=== PATIENT | female | born 1975 | race Caucasian/White ===

== ENCOUNTER 2019-11-13 10:46 | Outpatient (CLI) | payer OTHER, SELFPAY ==
--- NOTE | ~2019-11-13 | US_ITS ---
EXAMINATION: US thyroid EXAM DATE: 11/13/2019 11:15 INDICATION: Thyrotoxicosis. TECHNIQUE: Multiple grayscale and Doppler images of the thyroid were obtained (by a technologist who performed the scan) and subsequently reviewed. Individual nodules may be reported using TI-RADS syst em as designated by the 2017 ACR White Paper TI-RADS committee. There is no prior study for comparis on. FINDINGS: The thyroid is overall mildly enlarged with homogeneous thyroid echogenicity. The exact measurements were acquired in slightly oblique planes and are not believed to be accurate. No focal nodules. IMPRESSION: 1. Mild thyromegaly. Reviewed, dictated and finalized at location A. TERY WARDEN IMPRESSION: 1. Mild thyromegaly.
== END 2019-11-13 10:47 | disposition home or self-care (01) ==
LOC: ANHIMG 10:49
PROVIDERS: PCP Internal Medicine; Visit Provider Internal Medicine Endocrinology, Diabetes & Metabolism
DX: E05.90 Thyrotoxicosis, unspecified without thyrotoxic crisis or storm (principal)
CPT/HCPCS: 76536

== ENCOUNTER 2021-11-26 10:05 | Outpatient (CLI) | payer OTHER, SELFPAY ==
[2021-11-26 13:17] LABS: Free T4 Free Thyroxine 1.04 ng/mL (0.78-2.19)
[2021-11-26 13:32] LABS: Thyroid Stimulating Hormone 0.552 uIU/mL (0.465-4.680)
[2021-11-29 08:38] LABS: Triiodothyronine T3 Free 3.5 pg/mL (2.3-4.2)
== END 2021-11-26 10:06 | disposition home or self-care (01) ==
LOC: ANHWCLAB 10:09
PROVIDERS: PCP Internal Medicine; Visit Provider Internal Medicine Endocrinology, Diabetes & Metabolism
DX: E05.90 Thyrotoxicosis, unspecified without thyrotoxic crisis or storm (principal); E04.9 Nontoxic goiter, unspecified
CPT/HCPCS: 36415; 84439; 84443; 84481

== ENCOUNTER 2022-11-30 15:30 | Outpatient (CLI) | payer OTHER, SELFPAY ==
[2022-12-03 14:31] LABS: Thyroid Stimulating Immunoglob 193 % baseline (<140)
== END 2022-11-30 15:31 | disposition home or self-care (01) ==
LOC: ANHWCLAB 15:33
PROVIDERS: Visit Provider Internal Medicine Endocrinology, Diabetes & Metabolism
DX: E05.90 Thyrotoxicosis, unspecified without thyrotoxic crisis or storm (principal)
CPT/HCPCS: 36415; 84439; 84443; 84445

== ENCOUNTER 2024-09-15 13:17 | Outpatient (CLI) | payer OTHER, SELFPAY ==
[2024-09-15 14:08] LABS: Basophils Absolute Auto 0.1 K/mm3 (0.0-0.1); Basophils Percent Auto 1.2 % (0.2-1.2); Eosinophils Absolute Auto 0.1 K/mm3 (0-0.3); Eosinophils Percent Auto 0.9 % (0-4.4); Hematocrit 44.2 % (37.0-47.0); Hemoglobin 14.6 g/dL (12.0-15.0); Immature Granulocyte Absolute 0.02 K/mm3 (0.00-0.031); Immature Granulocyte Percent A 0.3 % (0-0.5); Lymphocytes Absolute Auto 1.73 K/mm3 (0.9-3.2); Mean Corpuscular Hemoglobin 32.2 pg (26-34); Mean Corpuscular Volume 97.4 fl (80-100); Mean Platelet Volume 10.6 fl (7.4-10.4); Monocytes Absolute Auto 0.5 K/mm3 (0.1-0.6); Monocytes Percent Auto 7.4 % (2.6-8.5); Neutrophils Absolute Auto 4.5 K/mm3 (1.3-6.7); Neutrophils Percent Auto 65.2 % (45.5-73.1); Platelet Count Result 321 k/mm3 (150-375); Red Blood Count 4.54 M/mm3 (4.2-5.4); Red Cell Distribution Width 12.6 % (11.5-14.5); White Blood Count 6.9 K/mm3 (4.5-10.0)
[2024-09-15 14:15] LABS: Add Urine Microscopic? NO; Appearance Urine Clear (Clear); Bilirubin Urine Negative (Negative); Blood Urine Negative (Negative); Color Urine Yellow (Yellow); Glucose Urine UA Negative (Negative); Ketones Urine Trace mg/dL (Negative); Leukocyte Esterase Ur Negative LEU/UL (Negative); Nitrate Urine Negative (Negative); Protein Urine Negative (Negative); pH Urine 5.5 (5.0-9.0)
[2024-09-15 14:20] LABS: Alanine Aminotransferase 27 U/L (6-35); Albumin Level 4.7 g/dL (3.5-5.1); Alkaline Phosphatase 93 U/L (38-126); Anion Gap 7 mmol/L (4-12); Aspartate Amino Transferase 22 U/L (14-36); Bilirubin,Total 0.7 mg/dL (0.2-1.3); Blood Urea Nitrogen 11 mg/dL (7-17); Calcium 10.1 mg/dL (8.4-10.2); Carbon Dioxide 26 mmol/L (22-30); Chloride 105 mmol/L (98-107); Cholesterol 192 mg/dL (0-200); Estimated Glomerular Filt Rate 58; Glucose 101 mg/dL (65-110); HDL Direct 57 mg/dL; Potassium 4.2 mmol/L (3.4-5.0); Sodium 138 mmol/L (137-145); Triglycerides 125 mg/dL (<150)
[2024-09-15 14:32] LABS: LDL Cholesterol Direct 93 mg/dL
[2024-09-15 14:51] LABS: Thyroid Stimulating Hormone 0.701 uIU/mL (0.465-4.680)
[2024-09-15 15:13] LABS: Vitamin D 25 Hydroxy 54.7 ng/mL
[2024-09-15 15:26] LABS: Folic Acid 9.2 ng/mL (2.76->20)
[2024-09-18 07:22] LABS: FSH 68.8 mIU/mL
== END 2024-09-15 13:18 | disposition home or self-care (01) ==
PROVIDERS: PCP Nurse Practitioner; Referring Provider Nurse Practitioner; Visit Provider Obstetrics & Gynecology
DX: G35 Multiple sclerosis (principal); F17.200 Nicotine dependence, unspecified, uncomplicated; J32.9 Chronic sinusitis, unspecified; Z00.00 Encounter for general adult medical examination without abnormal findings; R53.81 Other malaise; E55.9 Vitamin D deficiency, unspecified; Z13.21 Encounter for screening for nutritional disorder; Z78.0 Asymptomatic menopausal state
CPT/HCPCS: 36415; 80053; 80061; 81003; 82306; 82607; 82670; 82746; 83001; 84443; 85025

== ENCOUNTER 2024-09-28 16:49 | Outpatient (CLI) | payer OTHER, SELFPAY ==
[2024-09-28 18:01] LABS: Free T4 Free Thyroxine 0.98 ng/dL (0.78-2.19)
== END 2024-09-28 16:50 | disposition home or self-care (01) ==
LOC: ANHLAB 16:51
PROVIDERS: Internal Medicine Endocrinology, Diabetes & Metabolism; PCP Nurse Practitioner; Visit Provider Psychiatry & Neurology Neurology
DX: G35 Multiple sclerosis (principal); Z79.899 Other long term (current) drug therapy; E05.90 Thyrotoxicosis, unspecified without thyrotoxic crisis or storm
CPT/HCPCS: 36415; 84439

== ENCOUNTER 2024-10-30 08:23 | Outpatient (CLI) | payer OTHER, SELFPAY ==
[2024-10-30 08:50] LABS: Basophils Absolute Auto 0.1 K/mm3 (0.0-0.1); Eosinophils Percent Auto 0.4 % (0-4.4); Hematocrit 45.7 % (37.0-47.0); Hemoglobin 15.3 g/dL (12.0-15.0); Immature Granulocyte Absolute 0.03 K/mm3 (0.00-0.031); Immature Granulocyte Percent A 0.4 % (0-0.5); Lymphocytes Absolute Auto 1.59 K/mm3 (0.9-3.2); Mean Corpuscular HGB Conc 33.5 g/dl (32-36); Mean Corpuscular Hemoglobin 32.6 pg (26-34); Mean Corpuscular Volume 97.2 fl (80-100); Mean Platelet Volume 10.4 fl (7.4-10.4); Monocytes Absolute Auto 0.6 K/mm3 (0.1-0.6); Monocytes Percent Auto 7.3 % (2.6-8.5); Neutrophils Absolute Auto 6.1 K/mm3 (1.3-6.7); Neutrophils Percent Auto 71.9 % (45.5-73.1); Platelet Count Result 325 k/mm3 (150-375); Red Cell Distribution Width 12.5 % (11.5-14.5); White Blood Count 8.4 K/mm3 (4.5-10.0)
[2024-10-30 09:13] LABS: Immunoglobulin A 236 mg/dL (70-400); Immunoglobulin G 1480 mg/dL (700-1600); Immunoglobulin M 73 mg/dL (40-230)
[2024-10-30 09:39] LABS: Alanine Aminotransferase 28 U/L (6-35); Albumin Level 4.5 g/dL (3.5-5.1); Alkaline Phosphatase 85 U/L (38-126); Anion Gap 10 mmol/L (4-12); Aspartate Amino Transferase 26 U/L (14-36); Bilirubin,Total 0.8 mg/dL (0.2-1.3); Blood Urea Nitrogen 15 mg/dL (7-17); Calcium 9.8 mg/dL (8.4-10.2); Carbon Dioxide 26 mmol/L (22-30); Chloride 104 mmol/L (98-107); Estimated Glomerular Filt Rate > 60; Glucose 112 mg/dL (65-110); Potassium 5.2 mmol/L (3.4-5.0); Sodium 140 mmol/L (137-145)
[2024-10-31 16:39] LABS: Immunoglobulin E 13 kU/L (<OR=114)
--- OUTSIDE RECORDS SUMMARY | 2024-11-01 16:14 | XMS_ITS | Encounter Summary ---
Author Organization [facility] Healthcare Address [address] [place] [address] Care Team Providers Care Re Dye Hand Name Role Phone Baljinder Garcia MD Primary Care Provider [phone] Encounter Details Date Type Department Care Team (Late st Contact Info) Description 10/25/2024 Orders Only [facility] Health Information Management [address] [place] [address] Gianni Quintero MD [address] [facility] [address] [place] [address] Social History Tobacco Use Types Packs/Day Years Used Date Smoking Tobacco: Light Smoker Smokeless Tobacco: Never Alcohol Use Standard Drinks/Week Comments No 0 (1 standard drink = 0.6 oz pur e alcohol) Personal Safety Answer Date Recorded Getting School Help Needed Not on file 09/20 Comments No Sex and Gender Information Value Date Recorded Sex Assigned at Not on file Legal Sex Female 4:35 PM DE ICER Gender Identity Not on file Sexual Orientation Not on file documented as of this encounter Plan of Treatment Not on file documented as of this encounter Procedures Procedure Name Priority Date/Time Associated Diagnosis Comments SCAN - LABS 10/25/2024 4:33 PM DE ICER documented in this encounter Results * SCAN - LABS (10/25/2024 4:33 PM DE ICER) us Gianni Quintero MD Final Result documented in this encounter Visit Diagnoses Not on filedocumented in this encounter Care Teams Re Dye Hand Relationship Specialty Start Date End Date Baljinder Garcia MD [address] [place] [address] PCP - General Family Medicine 04/14/23 documented as of this encounter
--- OUTSIDE RECORDS SUMMARY | 2024-11-01 16:14 | XMS_ITS | Encounter Summary ---
Author Organization [facility] Healthcare Address [address] [place] [address] Care Team Providers Care Senior Outside Sales Representative Name Role Phone Cosmo Wright MD Primary Care Provider [phone] Baljinder Garcia MD Primary Care Provider [phone] Encounter Details Date Type Department Care Team (Late st Contact Info) Description 08/06/[address] [facility] [address] [place] [address] Transcribed Order, Provider Social History Tobacco Use Types Packs/Day Years Used Date Smoking Tobacco: Every Day Smokeless Tobacco: Never Alcohol Use Standard Drinks/Week Comments No 0 (1 standard drink = 0.6 oz pur e alcohol) Comments No Sex and Gender Information Value Date Recorded Sex Assigned at Not on file 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
--- OUTSIDE RECORDS SUMMARY | 2024-11-01 16:14 | XMS_ITS | Encounter Summary ---
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 Gender Identity Not on file Sexual Orientation Not on file documented as of this encounter Plan of Treatment Not on file documented as of this encounter Procedures Procedure Name Priority Date/Time Associated Diagnosis Comments SCAN - LABS 10/29/2024 3:11 PM BANKRUPTCY LEGAL ASSISTANT SCAN - LABS 10/29/2024 2:48 PM BANKRUPTCY LEGAL ASSISTANT documented in this encounter Results * SCAN - LABS (10/29/2024 3:11 PM BANKRUPTCY LEGAL ASSISTANT) us Gianni Quintero MD Final Result * SCAN - LABS (10/29/2024 2:48 PM BANKRUPTCY LEGAL ASSISTANT) us Gianni Quintero MD Final Result documented in this encounter Visit Diagnoses Not on filedocumented in this encounter Care Teams Detention Deputy Relationship Specialty Start Date End Date Baljinder Garcia MD [address] [place] [address] PCP - General Family Medicine 04/14/23 documented as of this encounter
--- OUTSIDE RECORDS SUMMARY | 2024-11-01 16:14 | XMS_ITS | Encounter Summary ---
Author Organization [facility] Healthcare Address [address] [place] [address] Care Team Providers Care Campaign Coordinator Name Role Phone Baljinder Garcia MD Primary Care Provider [phone] Reason for Visit * Reason Onset Date Comments [facility] Approval 10/29/2024 Auth# [id number], 04/02/24-04/02/25 Encounter Details Date Type Department Care Team (Late st Contact Info) Description 10/29/2024 Telephone [facility] [address] [facility] [address], [place] [address] Wali Bustamante [facility] Approval (Auth# [id number], 04/02/24-04/02/25) Social History Tobacco Use Types Packs/Day Years [...] on file 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 SPECIALIST * Telephone Encounter - Wali Bustamante - 10/29/2024 2:19 PM CST [facility] 6mo Infusion Infusion Due: 10/30/2024 Labs completed: 09/29/2024 Hepatitis completed: 03/09/2023 Last Provider Visit: 06/18/2024 Last Infusion: 04/30/2024 COVID Vaccine: Pfizer COVID-19 Vaccine (Comirnaty bivalent 12+ years) (Pfizer Sars-Cov-2 Bivalent Vaccination (12+ YRS))07/12/2022 Pfizer-BioNTLibboo COVID-19 Vaccine (Pfizer SARS-CoV-2 Monovalent Vaccination (12+ Yrs) PURPLE)07/16/2021, 12/28/2020, 12/06/2020 Allergies: Amoxicillin Drug Ingredient Not Specified Cephalexin Drug Ingredient Not Specified Erythromycin Drug Not Specified Please review chart and advise the [facility] if orders can be put in and patient scheduled. SPECIALIST SPECIALIST documented in this encounter Plan of Treatment Not on file documented as of this encounter Visit Diagnoses Not on filedocumented in this encounter Care Teams Campaign Coordinator Relationship Specialty Start Date End Date Baljinder Garcia MD [address] [place] [address] PCP - General Family Medicine 04/14/23 documented as of this encounter
--- OUTSIDE RECORDS SUMMARY | 2024-11-01 16:14 | XMS_ITS | Encounter Summary ---
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
--- OUTSIDE RECORDS SUMMARY | 2024-11-01 16:14 | XMS_ITS | Encounter Summary ---
Author Organization [facility] Healthcare Address [address] [place] [address] Care Team Providers Care Band Instrument Maker Name Role Phone Baljinder Garcia MD Primary Care Provider [phone] Reason for Visit * Reason Onset Date Comments Lab Results 09/19/2024 Encounter Details Date Type Department Care Team (Late st Contact Info) Description 09/19/2024 Telephone [facility] [address] [facility] [address] [address] Gianni Quintero MD [address] [place] [address] [address] [place] [address] Lab Results Social History Tobacco Use Types Packs/Day Years [...] on file Legal 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 Cabral labs only the pcps labs. I called Mee to let her know and she disagreed saying she went back another day and had them done and that she can see them in her mychart. She is going to call them now and try to get the results over to us she is asking us to hold off on canceling her infusion for tomorrow. COPY EDITOR * Telephone Encounter - Wali Bustamante - 10/29/2024 2:11 PM CST Spoke with pt to let her know we have not received her resutls yet, she said she had them drawn on 09/28 she will call them to see about getting resutls faxed. I also call to get them faxed over. COPY EDITOR * Telephone Encounter - Poonam Zhang - 09/19/2024 3:13 PM CST 6 mo [facility] labs COPY EDITOR documented in this encounter Plan of Treatment Scheduled Orders Name Type Priority Associated Diagnoses Orde r Schedule CBC with auto differential Lab Routine Multiple sclerosis (HCC) High risk medication use Expected: 09/19/2024, Expires: 09/19/2025 Comprehensive metabolic panel Lab Routine Multiple sclerosis (HCC) High risk medication use Expected: 09/19/2024, Expires: 09/19/2025 IgA Lab Routine Multiple sclerosis (HCC) High risk medication use Expected: 09/19/2024, Expires: 09/19/2025 IgE Lab Routine Multiple sclerosis (HCC) High risk medication use Expected: 09/19/2024, Expires: 09/19/2025 IgG Lab Routine Multiple sclerosis (HCC) High risk medication use Expected: 09/19/2024, Expires: 09/19/2025 IgM Lab Routine Multiple sclerosis (HCC) High risk medication use Expected: 09/19/2024, Expires: 09/19/2025 documented as of this encounter Visit Diagnoses Diagnosis Multiple sclerosis (HCC)- Primary Multiple sclerosis High risk medication use documented in this encounter Care Teams Band Instrument Maker Relationship Specialty Start Date End Date Baljinder Garcia MD [address] [place] [address] PCP - General Family Medicine 04/14/23 documented as of this encounter
--- OUTSIDE RECORDS SUMMARY | 2024-11-01 16:14 | XMS_ITS | Clinical Summary ---
Author Organization [facility] Address [address] [place] [address] Care Team Providers Care Security Professionals Name Role Phone Baljinder Garcia MD Primary Care Provider Allergies Active Allergy Reactions Criticality Noted Date Comments Amoxicillin Cephalexin Erythromycin Medications CYANOCOBALAMIN, VITAMIN B-12, ORAL Take 2,000 mcg by mouth daily Active cetirizine (ZyrTEC) 10 mg tablet Take by mouth. Activ e EPIDUO FORTE 0.3-2.5 % gel with pump 7 Active levonorgestreL (Mirena) IUD Mirena 20 mcg/24 hours (5 yrs) 52 mg intrauterine device Take 1 device by intrauterine route. Active methIMAzole (TAPAZOLE) 5 mg tablet Take 1 tablet (5 mg total) by mouth daily Active triamcinolone (KENALOG) 0.1 % cream 2 Active cholecalciferol , vitamin D3, (VITAMIN D3 ORAL) Take by mouth Active progesterone (PROMETRIUM) 200 mg capsule 3 Active oxyBUTYnin XL (DITROPAN XL) 15 mg 24 hr tabletIndicatio ns:Neurogenic bladder Take 1 tablet (15 mg total) by mouth daily 30 tablet 5 3 Active baclofen (LIORESAL) 10 mg tabletIndicatio ns:Multiple sclerosis (HCC) Take 1 tablet (10 mg total) by mouth every 8 (eight) hours as needed for muscle spasms 60 tablet 3 3 Active diazePAM (VALIUM) 5 mg tabletIndicatio ns:anxiety Take 1 tablet by mouth 1 hour prior to MRI, may repeat 30 minutes prior to exam. MUST HAVE FLY MAKER 2 tablet 3 Active cyclobenzaprine (FLEXERIL) 10 mg tabletIndicatio ns:Multiple sclerosis (HCC) TAKE 1 TABLET EVERY 8 HOURS NEEDED FOR MUSCLE SPASMS 60 tablet 5 3 Active buPROPion XL (WELLBUTRIN XL) 150 mg 24 hr tabletIndicatio ns:Multiple sclerosis (HCC),Depressio n due to multiple sclerosis (HCC) TAKE 1 TABLET EVERY MORNING 90 tablet 3 4 Active montelukast (SINGULAIR) 10 mg tablet Take 1 tablet (10 mg total) by mouth daily 4 Active HYDROcodone-tawny taminophen (NORCO) 5-325 mg per tabletIndicatio ns:Pain Take 1 tablet by mouth every 6 (six) hours as needed (pain) 20 tablet 4 Active Active Problems Problem Noted Date Diagnosed Date History of COVID-19 05/27/2022 Assessment & Plan (06/17/2023 2:07 PM CDT): September 2021. Positive on home test. Headache, chills, severe fatigue and muscle spasms Assessment & Plan (03/10/2023 7:22 AM CDT): September 2021. Positive on home test. Headache, chills, severe fatigue and muscle spasms Assessment & Plan (05/27/2022 7:32 AM CDT): September 2021. Positive on home test. Headache, chills, severe fatigue and muscle spasms Neurogenic bladder 01/06/2018 Assessment & Plan (06/17/2023 2:07 PM CDT): Oxybutynin XL 15 mg daily Assessment & Plan (03/10/2023 7:20 AM CDT): Change oxybutynin 10 mg in the morning to oxybutynin XL 15 mg in the morning. Assessment & Plan (05/27/2022 7:30 AM CDT): Oxybutynin 5 mg twice a day Assessment & Plan (02/19/2021 9:12 AM CDT): Oxybutynin 10 mg twice a day Assessment & Plan (07/28/2020 9:00 PM CDT): Oxybutynin 10 mg twice a day Assessment & Plan (01/06/2018 9:00 AM CDT): Oxybutynin Migraine without aura and wi thout status migrainosus, not intractable 07/05/2017 Assessment & Plan (06/17/2023 2:06 PM CDT): Excedrin as needed Assessment & Plan (03/10/2023 7:20 AM CDT): Excedrin as needed Assessment & Plan (05/27/2022 7:30 AM CDT): Excedrin as needed Assessment & Plan (02/19/2021 9:14 AM CDT): Fioricet p.r.n. Assessment & Plan (07/28/2020 8:59 PM CDT): Fioricet p.r.n. 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 Previously treated with Effexor XR 75 mg daily Assessment & Plan (03/10/2023 7:21 AM CDT): Some irritability Previously treated with Effexor XR 75 mg daily Assessment & Plan (05/27/2022 7:31 AM CDT): Some irritability Previously treated with Effexor XR 75 mg daily Assessment & Plan (02/19/2021 9:15 AM CDT): Mood improved Off Effexor XR 75 mg daily Assessment & Plan (07/28/2020 8:59 PM CDT): Mood improved Off Effexor XR 75 mg daily Assessment & Plan (01/06/2018 8:55 AM CDT): Effexor XR 75 mg daily Assessment & Plan (07/05/2017 9:31 AM CDT): Effexor XR 150 mg daily Hyperthyroidism 07/05/2017 Assessment & Plan (06/17/2023 2:07 PM CDT): Status post Lemtrada Methimazole 5 mg daily Endocrinology follow-up Assessment & Plan (03/10/2023 7:21 AM CDT): Status post Lemtrada Methimazole 5 mg daily Endocrinology follow-up Assessment & Plan (05/27/2022 7:31 AM CDT): Status post Lemtrada Methimazole 5 mg daily Endocrinology follow-up Assessment & Plan (02/19/2021 9:15 AM CDT): Status post Lemtrada Methimazole 5 mg daily Endocrinology follow-up Assessment & Plan (07/28/2020 9:01 PM CDT): Status post Lemtrada Methimazole 5 mg 3 times per week Endocrinology follow-up Assessment & Plan (01/06/2018 8:59 AM CDT): Due to Lemtrada exposure F/u with Dr. Suarez to address marked hyperthyroidism. Risks discussed. Assessment & Plan (07/05/2017 9:31 AM CDT): Due to Lemtrada exposure Thyroid scan today F/u with Dr. Suarez. Multiple sclerosis 07/22/2014 Overview (01/13/2017): Multiple sclerosis Assessment & Plan (06/17/2023 2:10 PM CDT): New right C2 cervical spinal cord lesion between May 2023 and July 2020. However did not start Ocrevus until September 2022. Next Ocrevus infusion October 05, 2023. First Ocrevus infusion September 24, 2022. The benefits and risks of Ocrevus were discussed including serious infusion reactions, serious infections (including pneumonia, herpetic infections and PML) and potential malignancy including breast cancer. Annual mammograms and monthly breast self exams. Previously treated with Lemtrada in [facility] II study. Last Lemtrada dose August 2015. Developed new breakthrough MRI activity including enhancing lesion in January 2019. PIEDAD virus antibody positive 08/07/20 with index 1.83 so will avoid Tysabri COVID-19 risks discussed including pneumonia and if she becomes reinfected. Her last COVID-19 vaccine was July 12, 2022. Another booster vaccination advised. She understands that Ocrevus may reduce the efficacy of a COVID-19 vaccine and potentially she may not be protected. Paxlovid advised if she develops recurrent COVID-19.. Hydrocodone/APAP prn severe muscle pain Baclofen 10 mg every 8 hours as needed for muscle spasms Vit D supplement 5000 IU Exercise encouraged Smoking cessation. Wellbutrin XL 150 mg daily prescribed; risks discussed including seizures. Assessment & Plan (03/10/2023 7:19 AM CDT): Next Ocrevus infusion March 24, 2023. First Ocrevus infusion September 24, 2022. The benefits and risks of Ocrevus were discussed including serious infusion reactions, serious infections (including pneumonia, herpetic infections and PML) and potential malignancy including breast cancer. Annual mammograms and monthly breast self exams. Previously treated with Lemtrada in [facility] II study. Last Lemtrada dose August 2015. Developed new breakthrough MRI activity including enhancing lesion in January 2019. PIEDAD virus antibody positive 08/07/20 with index 1.83 so will avoid Tysabri COVID-19 risks discussed including pneumonia and if she becomes reinfected. Her last COVID-19 vaccine was July 12, 2022. She understands that Ocrevus may reduce the efficacy of a COVID-19 vaccine and potentially she may not be protected. Paxlovid advised if she develops recurrent COVID-19.. Hydrocodone/APAP prn severe muscle pain Baclofen 10 mg every 8 hours as needed for muscle spasms Vit D supplement 5000 IU Exercise encouraged MRI brain and cervical spine without contrast May 2023 Assessment & Plan (05/27/2022 7:33 AM CDT): S/p Lemtrada in [facility] II study. Last dose August 2015. The benefits and risks of Lemtrada were discussed including serious infections, low platelets (with serious bleeding), immune kidney disease (with possible ESRD requiring dialysis/transplant), potential malignancy (including melanoma, thyroid cancer or hematologic malignancy) and even . Since new MRI activity including enhancing lesion 01/19/19, option of switching to another disease modifying therapy discussed again. However more recent MRI scan July 2020 was stable. PIEDAD virus antibody positive 08/07/20 with index 1.83 so will avoid Tysabri Patient previously declined Ocrevus. No family history of breast cancer. Patient understands that her PML or other serious infection risk may be higher due to prior Lemtrada exposure. COVID-19 risks discussed including pneumonia and if she becomes reinfected. She had her 3rd COVID-19 vaccine dose prior developing COVID-19 in September 2021. Patient understands that her immune system had likely reconstituted since last Lemtrada exposure 2014. Paxlovid advised if she develops COVID-19 again. Hydrocodone prn severe muscle pain Cyclobenzaprine better tolerated than baclofen for muscle spasms. Vit D supplement 3000 IU recommended Exercise encouraged Assessment & Plan (02/19/2021 9:14 AM CDT): S/p Lemtrada in [facility] II study. Last dose August 2015. The benefits and risks of Lemtrada were discussed including serious infections, low platelets (with serious bleeding), immune kidney disease (with possible ESRD requiring dialysis/transplant), potential malignancy (including melanoma, thyroid cancer or hematologic malignancy) and even . Since new MRI activity including enhancing lesion 01/19/19, option of switching to another disease modifying therapy discussed. However more recent MRI scan July 2020 was stable. PIEDAD virus antibody positive 08/07/20 with index 1.83 so will avoid Tysabri Patient prefers to hold off on Ocrevus initiation. No family history of breast cancer. Patient understands that her PML or other serious infection risk may be higher due to prior Lemtrada exposure. Increased risk of serious complications if develops COVID-19 infection discussed including pneumonia and possibly . Status post 2nd Pfizer COVID 19 vaccine December 28, 2020. Patient understands that her immune system likely reconstituted since last Lemtrada exposure 2014. Hydrocodone prn severe muscle pain Vit D supplement 3000 IU recommended Exercise encouraged Assessment & Plan (07/28/2020 9:05 PM CDT): S/p Lemtrada in [facility] II study. Last dose August 2015. The benefits and risks of Lemtrada were discussed including serious infections, low platelets (with serious bleeding), immune kidney disease (with possible ESRD requiring dialysis/transplant), potential malignancy (including melanoma, thyroid cancer or hematologic malignancy) and even . Since ongoing MRI activity including enhancing lesion 01/19/19, option of switching to another disease modifying therapy discussed. PIEDAD virus antibody positive in the past, but will repeat to confirm. If PIEDAD virus antibody negative, Tysabri would be an option. Risks and benefits of Tysabri discussed including serious infusion reaction, hepatotoxicity, serious infection including PML, and even . The benefits and risks of Ocrevus discussed as well including serious infusion reactions, serious infections including herpetic/respiratory/PML/fungal infections, harm, and potential malignancy including breast cancer. No family history of breast cancer. Patient understands that her PML or other serious infection risk may be higher due to prior Lemtrada exposure. Increased risk of serious complications if develops COVID-19 infection discussed including pneumonia and possibly . Hydrocodone prn severe muscle pain Vit D supplement Exercise Assessment & Plan (01/06/2018 9:00 AM CDT): S/p Lemtrada in [facility] II study. The benefits and risks of Lemtrada were discussed including serious infections, low platelets (with serious bleeding), immune kidney disease (with possible ESRD requiring dialysis/transplant), potential malignancy (including melanoma, thyroid cancer or hematologic malignancy) and even . Since MRI activity in December 2016 on Lemtrada, will switch to Ocrevus if her CD4 count is higher. If her MRI scan today is unchanged, may opt to continue current monitoring on Lemtrada. The benefits and risks of Ocrevus discussed including serious infusion reactions, serious infections including herpetic/respiratory/PML/fungal infections, harm, and potential malignancy including breast cancer. Patient understands that her PML or other serious infection risk may be higher due to prior Lemtrada exposure. No family h/o breast cancer. Needs annual mammograms. Hydrocodone prn severe muscle pain Vit D supplement Exercise Assessment & Plan (07/05/2017 9:30 AM CDT): S/p Lemtrada in [facility] II study. The benefits and risks of Lemtrada were discussed including serious infusion reactions, serious infections, low platelets (with serious bleeding), thyroid disease (1/3 change), immune kidney disease (with possible ESRD requiring dialysis/transplant), potential malignancy (including melanoma, thyroid cancer or hematologic malignancy) and even . Since ongoing MRI activity on Lemtrada, will switch to Ocrevus if her CD4 count is higher. The benefits and risks of Ocrevus discussed including serious infusion reactions, serious infections including PML/fungal infections, harm, and potential malignancy including breast cancer. Patient understands that her PML or other serious infection risk may be higher due to prior Lemtrada exposure. No family h/o breast cancer. Needs annual mammograms. Hydrocodone prn severe muscle pain Oxybutynin Vit D supplement Exercise Encounters Date Type Department Care Team Description 10/31/2024 Orders Only [facility] Health Information Management [address] [place] [id number] Gianni Quintero MD 10/30/2024 Orders Only [facility] Information [facility] [address] [place] [address] [id number] Gianni Quintero MD 10/29/2024 Orders Only [facility] [address] [place] [address] [phone] Gianni Quintero MD 10/29/[address] [facility] in [facility] [place] [address] [id number] Wali Bustamante Approval (Auth# [id number], 04/02/24-04/02/25) 10/25/2024 Orders Only [facility] [address] [place] [id number] Gianni Quintero MD 09/19/2024 Telephone [facility] [address] [phone] Gianni Quintero MD Lab Results from Last 3 Months Immunizations Name Administration Dates Next Due Influenza, Quadrivalent, Shavonne l Culture-based MDCK, Preservative Free, Antibiotic Free, Intramuscular 07/12/2022,08/24/2019 Influenza, Trivalent, IM (MDV) 07/28/2014 Social History Tobacco Use Types Packs/Day Years Used Date Smoking Tobacco: Light Smoker Smokeless Tobacco: Never Tobacco Cessation:Ready to Q uit: Not Asked; Counseling Given: Not Answered Alcohol Use Standard Drinks/Week Comments No 0 (1 standard drink = 0.6 oz pur e alcohol) Personal Safety Answer Date Recorded Getting School Help Needed Not on file 09/20 Comments No Sex and Gender Information Value Date Recorded Sex Assigned at Not on file Legal 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 Gender Identity Not on file Sexual Orientation Not on file Obstetrics History Last Filed Vital Signs Vital Sign Reading Time Taken Comments Blood Pressure 125/75 06/18/2024 9:48 AM CDT Pulse 101 06/18/2024 9:48 AM CDT Temperature 36.2 ??C (97.2 ??F) 06/18/2024 9:48 AM CD T Respiratory Rate 16 04/30/2024 1:30 PM CDT Oxygen Saturation 99% 06/18/2024 9:48 AM CDT Inhaled Oxygen Concentration - - Weight 85.7 kg (189 lb) 06/18/2024 9:48 AM CDT Height 167.6 cm (5' 6 ) 06/18/2024 9:48 AM CDT Body Mass Index 30.51 06/18/2024 9:48 AM CDT Plan of Treatment Health Maintenance Due Date Last Done Comments Breast Cancer Screening-Mammogram 1973 Cervical Cancer Screening 1973 Colon Cancer Screening-Colonoscopy 1973 Depression Screening 1973 Pneumococcal vaccine <65 (1 of 2 - PCV) 1979 DTaP/Tdap/Td Vaccine (1 - Tdap) 1984 Hepatitis B Screening 1991 Regular Well Visit/Exam 18-64 1991 Covid-19 Vaccine (5 - 2023-2 5 season) 2024 07/12/2022, 07/16/2021, 12/28/2020, Additional history exists Influenza Vaccine (#1) 2024 , 07/12/2022, 08/24/2019, Additional history exists Hepatitis C Screening Completed 08/07/2020, 018 Zoster Vaccine Completed 01/03/2024, 09/13/2023 Procedures Procedure Name Priority Date/Time Associated Diagnosis Comments SCAN - LABS 10/31/2024 4:57 PM HATCHERY SUPERVISOR SCAN - LABS 10/30/2024 11:17 AM HATCHERY SUPERVISOR SCAN - LABS 10/30/2024 11:17 AM HATCHERY SUPERVISOR SCAN - LABS 10/29/2024 3:11 PM HATCHERY SUPERVISOR SCAN - LABS 10/29/2024 2:48 PM HATCHERY SUPERVISOR SCAN - LABS 10/25/2024 4:33 PM HATCHERY SUPERVISOR HEPATITIS PANEL, ACUTE Routine 08/07/2020 11:13 AM CDT Multiple sclerosis (CMS/HCC) from Last 3 Months or Most Recently Relevant to Health Maintenance Results * SCAN - LABS (10/31/2024 4:57 PM HATCHERY SUPERVISOR) Gianni Quintero MD Final Result * SCAN - LABS (10/30/2024 11:17 AM HATCHERY SUPERVISOR) Result Mae joaquin Gianni Quintero MD Final Result * SCAN - LABS (10/30/2024 11:17 AM HATCHERY SUPERVISOR) Result Mae joaquin Gianni Quintero MD Final Result * SCAN - LABS (10/29/2024 3:11 PM HATCHERY SUPERVISOR) Result Mae joaquin Gianni Quintero MD Final Result * SCAN - LABS (10/29/2024 2:48 PM HATCHERY SUPERVISOR) Result Mae joaquin Gianni Quintero MD Final Result * SCAN - LABS (10/25/2024 4:33 PM HATCHERY SUPERVISOR) Result Mae us Gianni Quintero MD Final Result * Hepatitis panel, acute (08/07/2020 11:13 AM CDT) Hep A IgM Nonreactive Nonreactive [facility] Comment: Interpretive Data: If Hep A IgM Ab is reported as Equivocal, a new sample should be drawn in two weeks for testing. Current interpretive data was last revised on 19. Hep B core IgM Nonreactive Nonreactive [facility] Comment: Interpretive Data If HepB Core IgM Ab is reported as Equivocal, a new sample should be drawn in two weeks for testing. Current interpretive data was last revised on 19. Hep C Ab Nonreactive Nonreactive [facility] Comment: Interpretive Data Nonreactive: Antibodies to HCV not detected. Does NOT exclude the possibility of recent exposure to HCV. Equivocal: Equivocal for HCV antibodies. Supplemental molecular testing will be automatically performed to determine infection status in accordance with current CDC screening recommendations. ?? Reactive: Positive for HCV antibodies. ??This may represent current or past HCV infection. Supplemental molecular testing will be automatically performed to determine ??current infection status in accordance with current CDC screening recommendations. Interpretive data was last revised on 2019. HepBsAg Nonreactive Nonreactive [facility] Blood specimen (specimen) 08/07/2020 11:13 AM CDT 08/07/2020 11:48 AM CDT us Gianni Quintero MD LAB MICROBIOLOGY - GENERAL OR DERABLES Final Result Performing Organization Address City/State/[facility] Co de Phone Number [facility] [address] [place] [address] from Last 3 Months or Most Recently Relevant to Health Maintenance Insurance [address] CHOICE PLUS [facility] CHOICE PLUS [facility] CHOICE PLUS [address] CHOICE PLUS Care Teams Security Professionals Relationship Specialty Start Date End Date Baljinder Garcia MD [address] [place] [address] PCP - General Family Medicine 04/14/23
--- OUTSIDE RECORDS SUMMARY | 2024-11-01 16:14 | XMS_ITS | Continuity of Care Document ---
Author Organization [facility] Address [address] [place] [address] [address] [place] [address] Phone Care Team Providers Care Assisted Living Administrator Name Role Phone Justice OD, Ze Unavailable Unavailable Procedures Procedure Date Office/outpatient Visit, [facility] Advance Directives Directive Yes / No Effective Date File Name No Information Encounters Encounter Description Practice Location Reason(s) For Visit Diagnoses Date Provider Providers Copied on Encounter Office/outpat ient Visit, [facility], [address] [place] [address] [address], [place], [place], [id number], [place] tel:[phone] [facility] No Information [phone] Justice OD Ze. [address] , [address], [place], [address], [place]. tel:[phone] Family History Family Member Type Diagnosis Age At Onset No Information Payers Payer name Insurance type Covered libertarian ID Authoriza tion(s) Medicaid [place] CI [id number] Social History Type Description Quantity Date Captured [...]
--- OUTSIDE RECORDS SUMMARY | 2024-11-01 16:14 | XMS_ITS | Referral Summary ---
Author Organization [facility] Address [address] [place] [address] Care Team Providers Care Trim Mounter Name Role Phone Baljinder Garcia MD Primary Care Provider [phone] Encounters Date Type Department Care Team Description 10/31/2024 Orders Only [facility] [address] [place] [address] Gianni Quintero MD 10/30/2024 Orders Only [facility] [address] [place] [address] Gianni Quintero MD 10/29/2024 Orders Only [facility] [address] [place] [address] Gianni Quintero MD 10/29/2024 Telephone [facility] [address] [facility] [address] [place] [address] Wali Bustamante Approval (Auth# [id number], 04/02/24-04/02/25) 10/25/2024 Orders Only [facility] [address] [place] [address] Gianni Quintero MD 09/19/2024 Telephone [facility] [address] [facility] [address] [place] [address] Gianni Quintero MD Lab Results from Last 3 Months Allergies Active Allergy Reactions Criticality Noted Date [...] 30 minutes prior to exam. 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 Gender Identity Not on file Sexual Orientation Not on file Last Filed Vital Signs Vital Sign Reading [...] 06/18/2024 9:48 AM CDT Plan of Treatment Not on file Procedures Procedure Name Priority Date/Time Associated Diagnosis Comments SCAN - LABS 10/31/2024 4:57 PM BEAUTY CULTURE TEACHER SCAN - LABS 10/30/2024 11:17 AM BEAUTY CULTURE TEACHER SCAN - LABS 10/30/2024 11:17 AM BEAUTY CULTURE TEACHER SCAN - LABS 10/29/2024 3:11 PM BEAUTY CULTURE TEACHER SCAN - LABS 10/29/2024 2:48 PM BEAUTY CULTURE TEACHER SCAN - LABS 10/25/2024 4:33 PM BEAUTY CULTURE TEACHER HEPATITIS PANEL, ACUTE Routine 08/07/2020 11:13 AM CDT Multiple sclerosis (CMS/HCC) from Last 3 Months or Most Recently Relevant to Health Maintenance Results * SCAN - LABS (10/31/2024 4:57 PM BEAUTY CULTURE TEACHER) Result Mae Quintero MD Final Result * SCAN - LABS (10/30/2024 11:17 AM BEAUTY CULTURE TEACHER) Result Mae Quintero MD Final Result * SCAN - LABS (10/30/2024 11:17 AM BEAUTY CULTURE TEACHER) Result Mae Quintero MD Final Result * SCAN - LABS (10/29/2024 3:11 PM BEAUTY CULTURE TEACHER) Result Mae Quintero MD Final Result * SCAN - LABS (10/29/2024 2:48 PM BEAUTY CULTURE TEACHER) Result Mae Quintero MD Final Result * SCAN - LABS (10/25/2024 4:33 PM BEAUTY CULTURE TEACHER) Result Mae Quintero MD Final Result * Hepatitis panel, acute (08/07/2020 11:13 AM CDT) Hep A IgM Nonreactive Nonreactive [facility] Comment: Interpretive Data: If Hep A IgM Ab is reported as Equivocal, a new sample should be drawn in two weeks for testing. Current interpretive data was last revised on 19. Hep B core IgM Nonreactive Nonreactive [facility] Comment: Interpretive Data If HepB Core IgM Ab is reported as Equivocal, a new sample should be drawn in two weeks for testing. Current interpretive data was last revised on 19. Hep C Ab Nonreactive Nonreactive [facility] Comment: Interpretive Data Nonreactive: Antibodies to HCV [...] last revised on 2019. HepBsAg Nonreactive Nonreactive [facility] Blood specimen (specimen) 08/07/2020 11:13 AM CDT 08/07/2020 11:48 AM CDT Gianni Quintero MD LAB MICROBIOLOGY - GENERAL OR DERABLES Final Result Performing Organization Address City/State/[facility] de Phone Number [facility] [address] [place] [address] from Last 3 Months or Most Recently Relevant to Health Maintenance Insurance [facility] CHOICE PLUS [address] CHOICE PLUS [address] CHOICE PLUS Care Teams Trim Mounter Relationship Specialty Start Date End Date Baljinder Garcia MD [facility] [place] [address] PCP - General Family Medicine 04/14/23
--- OUTSIDE RECORDS SUMMARY | 2024-11-01 16:14 | XMS_ITS | Encounter Summary ---
Author Organization [facility] Address [address] [facility] [address] [place] [address] Phone Care Team Providers Care Centerless Grinder Operator Name Role Phone Cosmo Wright MD Primary Care Provider [phone] Baljinder Garcia MD Primary Care Provider [phone] Encounter Details Date Type Department Care Team (Late st Contact Info) Description 01/06/2018 Orders Only [facility] ProviderTiesha [place] [address] Social History Tobacco Use Types Packs/Day Years Used Date Smoking Tobacco: Every Day Smokeless Tobacco: Never Alcohol Use Standard Drinks/Week Comments No 0 (1 standard drink = 0.6 oz pur e alcohol) Comments No Sex and Gender Information Value Date Recorded Sex Assigned at Not on file Legal Sex Female 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 us Historical Provider LAB BLOOD ORDERABLES Romana l Result documented in this encounter Visit Diagnoses Not on filedocumented in this encounter Care Teams Centerless Grinder Operator Relationship Specialty Start Date End Date Cosmo Wright MD [address] [place] [address] PCP - General 12/22/16 08/06/20 Baljinder Garcia MD [address] [place] [address] PCP - General Family Medicine 04/14/23 documented as of this encounter
== END 2024-10-30 08:24 | disposition home or self-care (01) ==
LOC: ANHLAB 08:29
PROVIDERS: PCP Nurse Practitioner; Visit Provider Psychiatry & Neurology Neurology
DX: G35 Multiple sclerosis (principal); Z79.899 Other long term (current) drug therapy
CPT/HCPCS: 36415; 80053; 82784; 82785; 85025

== ENCOUNTER 2024-12-07 16:56 | Outpatient (CLI) | payer OTHER, SELFPAY ==
[2024-12-11 01:53] LABS: FSH 75.1 mIU/mL
== END 2024-12-07 16:57 | disposition home or self-care (01) ==
LOC: ANHLAB 16:59
PROVIDERS: PCP Nurse Practitioner; Referring Provider Obstetrics & Gynecology; Visit Provider Internal Medicine Endocrinology, Diabetes & Metabolism
DX: E05.90 Thyrotoxicosis, unspecified without thyrotoxic crisis or storm (principal); Z78.0 Asymptomatic menopausal state
CPT/HCPCS: 36415; 82670; 83001; 84443

== ENCOUNTER 2025-02-12 08:24 | Outpatient (CLI) | payer OTHER, SELFPAY ==
--- OUTSIDE RECORDS SUMMARY | 2025-02-12 08:39 | XMS_ITS | Continuity of Care Document ---
Author Organization [facility] Address [address] [place] [address] [address] [place] [address] Phone Care Team Providers Care Esthetician Makeup Artist Name Role Phone Justice OD, Ze Unavailable Unavailable Procedures Procedure Date Office/outpatient Visit, [facility] Advance Directives Directive Yes / No Effective Date File Name No Information Encounters Encounter Description Practice Location Reason(s) For Visit Diagnoses Date Provider Providers Copied on Encounter Office/outpat ient Visit, [facility], [address] [place] [address] [address], [place], [place], [id number], [place] tel:[phone] [facility] [place] No Information [phone] Justice OD Ze. [address] [place] , [address], [place], [address], [place]. tel:[phone] Family History Family Member Type Diagnosis Age At Onset No Information Payers Payer name Insurance type Covered green party ID Authoriza tion(s) [place] [id number] Social History Type Description Quantity Date Captured [...]
--- OUTSIDE RECORDS SUMMARY | 2025-02-12 08:39 | XMS_ITS | Patient Health Record ---
Author Organization [employer] Address [address] [facility] [address] [place] [address] Care Team Providers Care Sat Act Instructor Name Role Phone Baljinder Garcia MD Primary Care Provider UnavailGa Munguia Unavailable [phone] Reason For Referral No Information Plan Of Treatment No Information Insurance Providers Payer Name Payer Address Payer Phone Subscriber Number Group Number Insured Name Patient Relationship to Insured Coverage Start Date Coverage End Date [facility] Choice/ choice Plus E2 [address] [address] [place] [address] [phone] [id number] Mee Moreira Self - patient is the insured
--- OUTSIDE RECORDS SUMMARY | 2025-02-12 08:39 | XMS_ITS | Encounter Summary ---
Author Organization [facility] Healthcare Address [address] [place] [address] Care Team Providers Care Design/Animation Instructor Name Role Phone Baljinder Garcia MD Primary Care Provider [phone] Encounter Details Date Type Department Care Team (Late st Contact Info) Description 04/04/2024 Telephone [facility] [address] [address] Kim Cagle RN Social History Tobacco Use Types Packs/Day Years Used Date Smoking Tobacco: Light Smoker Smokeless Tobacco: Never Alcohol Use Standard Drinks/Week Comments No 0 (1 standard drink = 0.6 oz pur e alcohol) Comments No Sex and Gender Information Value Date Recorded Sex Assigned at Not on file 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
--- OUTSIDE RECORDS SUMMARY | 2025-02-12 08:39 | XMS_ITS | Encounter Summary ---
Author Organization [facility] Healthcare Address [address] [place] [address] Care Team Providers Care Acupressure Therapist Name Role Phone Cosmo Wright MD Primary Care Provider Baljinder Garcia MD Primary Care Provider [phone] Encounter Details Date Type Department Care Team (Late st Contact Info) Description 08/06/2020 Telephone [facility] [address] [place] [address] Transcribed Order, Provider Social History Tobacco Use Types Packs/Day Years Used Date Smoking Tobacco: Every Day Smokeless Tobacco: Never Alcohol Use Standard Drinks/Week Comments No 0 (1 standard drink = 0.6 oz pur e alcohol) Comments No Sex and Gender Information Value Date Recorded Sex Assigned at Not on file 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
--- OUTSIDE RECORDS SUMMARY | 2025-02-12 08:39 | XMS_ITS | Clinical Summary ---
Author Organization [facility] Address [address] [place] [address] Care Team Providers Care Vocational Teacher Name Role Phone Baljinder Garcia MD Primary Care Provider [phone] Allergies Active Allergy Reactions Criticality Noted Date Comments Amoxicillin Cephalexin Erythromycin Medications CYANOCOBALAMIN, VITAMIN B-12, ORAL Take 2,000 mcg by mouth daily Active cetirizine (ZyrTEC) 10 mg tablet Take by mouth. Activ e EPIDUO FORTE 0.3-2.5 % gel with pump 05/06/20 17 Active levonorgestreL (Mirena) IUD Mirena 20 mcg/24 hours (5 yrs) 52 mg intrauterine device Take 1 device by intrauterine route. Active methIMAzole (TAPAZOLE) 5 mg tablet Take 1 tablet (5 mg total) by mouth daily Active triamcinolone (KENALOG) 0.1 % cream 11/04/19 22 Active cholecalciferol, vitamin D3, (VITAMIN D3 ORAL) Take by mouth Active progesterone (PROMETRIUM) 200 mg capsule 02/16/20 23 Active oxyBUTYnin XL (DITROPAN XL) 15 mg 24 hr tabletIndications: Neurogenic bladder Take 1 tablet (15 mg total) by mouth daily 30 tablet 5 03/09/20 23 Active Additional Information Patient taking differently:15 mg oralAs needed, Reported on 12/25/2024 baclofen (LIORESAL) 10 mg tabletIndications: Multiple sclerosis (HCC) Take 1 tablet (10 mg total) by mouth every 8 (eight) hours as needed for muscle spasms 60 tablet 3 03/09/20 23 Active diazePAM (VALIUM) 5 mg tabletIndications: anxiety Take 1 tablet by mouth 1 hour prior to MRI, may repeat 30 minutes prior to exam. 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) TAKE 1 TABLET EVERY MORNING 90 tablet 3 06/06/20 24 Active montelukast (SINGULAIR) 10 mg tablet Take 1 tablet (10 mg total) by mouth daily 05/03/20 24 Active HYDROcodone-acetam inophen (NORCO) 5-325 mg per tabletIndications: Pain Take 1 tablet by mouth every 6 (six) hours as needed (pain) 20 tablet 07/30/20 24 Active ondansetron ODT (ZOFRAN-ODT) 4 mg disintegrating tabletIndications: Multiple sclerosis (HCC) Take 1 tablet (4 mg total) by mouth every 8 (eight) hours as needed for nausea or vomiting 20 tablet 11/20/19 25 Active cyclobenzaprine (FLEXERIL) 10 mg tabletIndications: Multiple sclerosis (HCC) TAKE 1 TABLET EVERY 8 HOURS NEEDED FOR MUSCLE SPASMS 60 tablet 5 12/07/19 25 Active estradioL (ESTRACE) 0.5 mg tablet Take 1 tablet (0.5 mg total) by mouth daily 09/25/20 24 Active Active Problems Problem Noted Date Diagnosed [...] Assessment & Plan (02/19/2021 9:14 AM CDT): Flavia p.r.wanda. 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 Gender Identity Not on file Sexual Orientation Not on file Obstetrics History Last Filed Vital Signs Vital Sign Reading Time Taken Comments Blood Pressure 112/74 12/25/2024 9:17 AM CDT Pulse 97 12/25/2024 9:17 AM CDT Temperature 36.7 C (98.1 F) 12/25/2024 9:17 AM CDT Respiratory Rate 16 11/13/2024 12:31 PM QUARTER SUPERVISOR Oxygen Saturation 98% 12/25/2024 9:17 AM CDT Inhaled Oxygen Concentration - - Weight 89.8 kg (198 lb) 12/25/2024 9:17 AM CDT Height 167.6 cm (5' 6 ) 12/25/2024 9:17 AM CDT Body Mass Index 31.96 12/25/2024 9:17 AM CDT Plan of Treatment Health Maintenance Due Date Last Done Comments Breast Cancer Screening-Mammogram 1973 Cervical Cancer Screening 1973 Colon Cancer Screening-Colonoscopy 1973 Depression Screening 1973 DTaP/Tdap/Td Vaccine (1 - Tdap) 1984 Hepatitis B Screening 1991 Regular Well Visit/Exam 18-64 1991 Pneumococcal vaccine <65 (1 of 2 - PCV) 1992 Covid-19 Vaccine (5 - 2023-2 5 season) 2024 07/12/2022, 07/16/2021, 12/28/2020, Additional history exists Influenza Vaccine (#1) 2024 , 07/12/2022, 08/24/2019, Additional history exists Hepatitis C Screening Completed 08/07/2020, 018 Zoster Vaccine Completed 01/03/2024, 09/13/2023 Procedures Procedure Name Priority Date/Time Associated Diagnosis Comments HEPATITIS PANEL, ACUTE Routine 08/07/2020 11:13 AM CDT Multiple sclerosis (HCC) from Last 3 Months or Most Recently Relevant to Health Maintenance Results * Hepatitis panel, acute (08/07/2020 11:13 AM CDT) Hep A IgM Nonreactive Nonreactive [facility] Comment: Interpretive Data: If Hep A IgM Ab is reported as Equivocal, a new sample should be drawn in two weeks for testing. Current interpretive data was last revised on 19. Hep B core IgM Nonreactive Nonreactive [facility] Comment: Interpretive Data If HepB Core IgM Ab is reported as Equivocal, a new sample should be drawn in two weeks for testing. Current interpretive data was last revised on 19. Hep C Ab Nonreactive Nonreactive [facility] Comment: Interpretive Data Nonreactive: Antibodies to HCV not detected. Does NOT exclude the possibility of recent exposure to HCV. Equivocal: Equivocal for HCV antibodies. Supplemental molecular testing will be automatically performed to determine infection status in accordance with current CDC screening recommendations. Reactive: Positive for HCV antibodies. This may represent current or past HCV infection. Supplemental molecular testing will be automatically performed to determine current infection status in accordance with current CDC screening recommendations. Interpretive data was last revised on 2019. HepBsAg Nonreactive Nonreactive [facility] Blood specimen (specimen) 08/07/2020 11:13 AM CDT 08/07/2020 11:48 AM CDT us Gianni Quintero MD LAB MICROBIOLOGY - GENERAL OR DERABLES Final Result [facility] [address] [place] [address] from Last 3 Months or Most Recently Relevant to Health Maintenance Insurance [address] CHOICE PLUS [facility] CHOICE PLUS [facility] CHOICE PLUS [address] CHOICE PLUS Care Teams Vocational Teacher Relationship Specialty Start Date End Date Baljinder Garcia MD [address] [place] [address] PCP - General Family Medicine 04/14/23
--- OUTSIDE RECORDS SUMMARY | 2025-02-12 08:39 | XMS_ITS | Referral Summary ---
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 MUST HAVE DAY HAUL OR FARM CHARTER BUS DRIVER 2 tablet 05/11/20 23 Active buPROPion XL [...] pain Oxybutynin Vit D supplement Exercise Immunizations Immunization Administration Dates Next Due Influenza, [...] on file Legal Sex Female 4:35 PM MOLD RUNNER Gender Identity Not on file Sexual Orientation Not on file Last Filed Vital Signs Vital Sign Reading Time Taken Comments Blood Pressure 112/74 12/25/2024 9:17 AM CDT Pulse 97 12/25/2024 9:17 AM CDT Temperature 36.7 C (98.1 F) 12/25/2024 9:17 AM CDT Respiratory Rate 16 11/13/2024 12:31 PM MOLD RUNNER Oxygen Saturation 98% 12/25/2024 9:17 AM CDT Inhaled Oxygen Concentration - - Weight 89.8 kg (198 lb) 12/25/2024 9:17 AM CDT Height 167.6 cm (5' 6 ) 12/25/2024 9:17 AM CDT Body Mass Index 31.96 12/25/2024 9:17 AM CDT Plan of Treatment Not on file Procedures Procedure Name Priority Date/Time Associated Diagnosis Comments HEPATITIS PANEL, ACUTE Routine 08/07/2020 11:13 AM CDT Multiple sclerosis (HCC) from Last 3 Months or Most Recently Relevant to Health Maintenance Results * Hepatitis panel, acute (08/07/2020 11:13 AM CDT) Hep A IgM Nonreactive Nonreactive [facility] Comment: Interpretive Data: If Hep A IgM Ab is reported as Equivocal, a new sample should be drawn in two weeks for testing. Current interpretive data was last revised on 19. Hep B core IgM Nonreactive Nonreactive [facility] Comment: Interpretive Data If HepB Core IgM Ab is reported as Equivocal, a new sample should be drawn in two weeks for testing. Current interpretive data was last revised on 19. Hep C Ab Nonreactive Nonreactive [facility] Comment: Interpretive Data Nonreactive: Antibodies to HCV [...] last revised on 2019. HepBsAg Nonreactive Nonreactive [facility] Blood specimen (specimen) 08/07/2020 11:13 AM CDT 08/07/2020 11:48 AM CDT us Gianni Quintero MD LAB MICROBIOLOGY - GENERAL OR DERABLES Final Result [facility] [address] Department [place] [address] from Last 3 Months or Most Recently Relevant to Health Maintenance Insurance [address] CHOICE PLUS [address] CHOICE PLUS [address] CHOICE PLUS [place] [id number] [facility] CHOICE PLUS Care Teams Women Specialist Relationship Specialty Start Date End Date Baljinder Garcia MD [address] [place] [address] PCP - General Family Medicine 04/14/23
--- OUTSIDE RECORDS SUMMARY | 2025-02-12 08:39 | XMS_ITS | Encounter Summary ---
Author Organization [facility] Address [address] [facility] [address] [place] [address] Phone Care Team Providers Care Backhoe Operator Name Role Phone Cosmo Wright MD Primary Care Provider Baljinder Garcia MD Primary Care Provider Encounter Details Date Type Department Care Team (Late st Contact Info) Description 01/06/2018 Orders Only [facility] ProviderTiesha MD [facility] [place] [address] Social History Tobacco Use Types Packs/Day Years Used Date Smoking Tobacco: Every Day Smokeless Tobacco: Never Alcohol Use Standard Drinks/Week Comments No 0 (1 standard drink = 0.6 oz pur e alcohol) Comments No Sex and Gender Information Value Date Recorded Sex Assigned at Not on file Legal Sex Female 4:35 PM NURSE ORTHO Gender Identity Not on file Sexual Orientation [...] on filedocumented in this encounter Care Teams Backhoe Operator Relationship Specialty Start Date End Date Cosmo Wright MD [address] [place] [address] PCP - General 12/22/16 08/06/20 Baljinder Garcia MD [address] [place] [address] PCP - General Family Medicine 04/14/23 documented as of this encounter
== END 2025-02-12 08:25 | disposition home or self-care (01) ==
LOC: ANHLAB 08:27
PROVIDERS: PCP Nurse Practitioner; Visit Provider Obstetrics & Gynecology
DX: Z78.0 Asymptomatic menopausal state (principal)
CPT/HCPCS: 36415; 82670

== ENCOUNTER 2025-04-23 10:28 | Outpatient (CLI) | payer OTHER, SELFPAY ==
--- OUTSIDE RECORDS SUMMARY | 2025-04-23 10:52 | XMS_ITS | Encounter Summary ---
Author Organization [facility] Healthcare Address [address] [place] [address] Care Team Providers Care Metal Solderer Name Role Phone Baljinder Garcia MD Primary Care Provider [phone] Encounter Details Date Type Department Care Team (Late st Contact Info) Description 04/23/2025 Telephone [facility] for [facility] in Care [address] [facility] [address] [address] Gianni Quintero MD 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 Gender Identity Not on file Sexual Orientation Not on file documented as of this encounter Miscellaneous Notes * Telephone Encounter - Sommer Sidhu MA - 04/23/2025 10:36 AM CDT Cecille from [facility] called asking for labs to be faxed to [phone] Faxed orders documented in this encounter Plan of Treatment Not on file documented as of this encounter Visit Diagnoses Not on filedocumented in this encounter Care Teams Metal Solderer Relationship Specialty Start Date End Date Baljinder Garcia MD [address] [place] [address] PCP - General Family Medicine 04/14/23 documented as of this encounter
--- OUTSIDE RECORDS SUMMARY | 2025-04-23 10:52 | XMS_ITS | Encounter Summary ---
Author Organization [facility] Healthcare Address [address] [place] [address] Care Team Providers Care Office Nurse Practitioner Name Role Phone Baljinder Garcia MD Primary Care Provider [phone] Encounter Details Date Type Department Care Team (Late st Contact Info) Description 04/04/2024 Telephone [facility] [address] [address] Kim Cagle RN Social History Tobacco Use Types Packs/Day Years Used Date Smoking Tobacco: Light Smoker Smokeless Tobacco: Never Alcohol Use Standard Drinks/Week Comments No 0 (1 standard drink = 0.6 oz pur e alcohol) Comments No Sex and Gender Information Value Date Recorded Sex Assigned at Not on file Legal Sex Female 4:35 PM 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
--- OUTSIDE RECORDS SUMMARY | 2025-04-23 10:52 | XMS_ITS | Patient Health Record ---
Author Organization [facility] Address [address] [facility] [address] [place] [address] Care Team Providers Care Composite Mechanic Name Role Phone Baljinder Garcia MD Primary Care Provider UnavailGa Munguia Unavailable [phone] Reason For Referral No Information Plan Of Treatment No Information Insurance Providers Payer Name Payer Address Payer Phone Subscriber Number Group Number Insured Name Patient Relationship to Insured Coverage Start Date Coverage End Date [facility] Choice/ choice Plus [id number] [address] [address] [place] [address] [id number] Mee Moreira Self - patient is the insured
--- OUTSIDE RECORDS SUMMARY | 2025-04-23 10:52 | XMS_ITS | Encounter Summary ---
Author Organization [facility] Address [address] [facility] [address] [place] [address] Phone Care Team Providers Care Marketing Sales Consultant Name Role Phone Cosmo Wright MD Primary Care Provider [phone] Baljinder Garcia MD Primary Care Provider [phone] Encounter Details Date Type Department Care Team (Late st Contact Info) Description 01/06/2018 Orders Only [facility] ProviderTiesha MD [facility] [place] [address] Social History Tobacco Use Types Packs/Day Years Used Date Smoking Tobacco: Every Day Smokeless Tobacco: Never Alcohol Use Standard Drinks/Week Comments No 0 (1 standard drink = 0.6 oz pur e alcohol) Comments No Sex and Gender Information Value Date Recorded Sex Assigned at Not on file Legal Sex Female 4:35 PM PORTFOLIO MGR Gender Identity Not on file Sexual Orientation [...] on filedocumented in this encounter Care Teams Marketing Sales Consultant Relationship Specialty Start Date End Date Cosmo Wright MD [address] [place] [address] [place] [address] PCP - General 12/22/16 08/06/20 Baljinder Garcia MD [address] [place] [address] PCP - General Family Medicine 04/14/23 documented as of this encounter
--- OUTSIDE RECORDS SUMMARY | 2025-04-23 10:52 | XMS_ITS | Patient Health Record ---
Author Organization [facility] Address [address] [facility] [address] [place] [address] Care Team Providers Care Fiction And Nonfiction Writer Prose Name Role Phone Gerardo Herzog Unavailable [phone] Reason For Referral No Information Plan Of Treatment No Information
--- OUTSIDE RECORDS SUMMARY | 2025-04-23 10:53 | XMS_ITS | Clinical Summary ---
Author Organization [facility] Address [address] [place] [address] Care Team Providers Care Lsw Name Role Phone Baljinder Garcia MD Primary Care Provider [phone] Allergies Active Allergy Reactions Criticality Noted Date [...] 30 minutes prior to exam. 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 Gender Identity Not on file Sexual Orientation Not on file Obstetrics History Last Filed Vital Signs Vital Sign Reading Time Taken Comments Blood Pressure 112/74 12/25/2024 9:17 AM CDT Pulse 97 12/25/2024 9:17 AM CDT Temperature 36.7 C (98.1 F) 12/25/2024 9:17 AM CDT Respiratory Rate 16 11/13/2024 12:31 PM DOCUMENT CONTROL ASSOCIATE Oxygen Saturation 98% 12/25/2024 9:17 AM CDT Inhaled Oxygen Concentration - - Weight 89.8 kg (198 lb) 12/25/2024 9:17 AM CDT Height 167.6 cm (5' 6) 12/25/2024 9:17 AM CDT Body Mass Index [...] 12/28/2020, Additional history exists Influenza Vaccine (#1) 2025 , 07/12/2022, 08/24/2019, Additional history exists Hepatitis C Screening Completed 08/07/2020, 018 Zoster Vaccine Completed 01/03/2024, 09/13/2023 Procedures Procedure Name Priority Date/Time Associated Diagnosis Comments HEPATITIS PANEL, ACUTE Routine 08/07/2020 11:13 AM CDT Multiple sclerosis (HCC) from Last 3 Months or Most Recently Relevant to Health Maintenance Results * Hepatitis panel, acute (08/07/2020 11:13 AM CDT) Hep A IgM Nonreactive Nonreactive [facility] Comment: Interpretive Data: If Hep A IgM Ab is reported as Equivocal, a new sample should be drawn in two weeks for testing. Current interpretive data was last revised on 19. Hep B core IgM Nonreactive Nonreactive [facility] Comment: Interpretive Data If HepB Core IgM Ab is reported as Equivocal, a new sample should be drawn in two weeks for testing. Current interpretive data was last revised on 19. Hep C Ab Nonreactive Nonreactive [facility] Comment: Interpretive Data Nonreactive: Antibodies to HCV [...] last revised on 2019. HepBsAg Nonreactive Nonreactive [facility] Blood specimen (specimen) 08/07/2020 11:13 AM CDT 08/07/2020 11:48 AM CDT Gianni Quintero MD LAB MICROBIOLOGY - GENERAL OR DERABLES Final Result [facility] [address] [place] [address] from Last 3 Months or Most Recently Relevant to Health Maintenance Insurance [address] [facility]ICE [facility] HMO/PPO Address: [address] [place] [address] [employer] HMO/PPO Address: [address] [address] [place] [address] [facility] CHOICE [facility] HMO/PPO Address: [address] [place] [address] [employer] HMO/PPO Address: [address] [place] [address] Care Teams Lsw Relationship Specialty Start Date End Date Baljinder Garcia MD [address] [place] [address] PCP - General Family Medicine 04/14/23
--- OUTSIDE RECORDS SUMMARY | 2025-04-23 10:53 | XMS_ITS | Encounter Summary ---
Author Organization [facility] Healthcare Address [address] [place] [address] Care Team Providers Care Site Safety Manager Name Role Phone Cosmo Wright MD Primary Care Provider [phone] Baljinder Garcia MD Primary Care Provider [phone] Encounter Details Date Type Department Care Team (Late st Contact Info) Description 08/06/2020 Telephone [facility] - Imaging [address] [place] [address] Transcribed Order, Provider Social History Tobacco Use Types Packs/Day Years Used Date Smoking Tobacco: Every Day Smokeless Tobacco: Never Alcohol Use Standard Drinks/Week Comments No 0 (1 standard drink = 0.6 oz pur e alcohol) Comments No Sex and Gender Information Value Date Recorded Sex Assigned at Not on file 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 Female 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
--- OUTSIDE RECORDS SUMMARY | 2025-04-23 10:53 | XMS_ITS | Referral Summary ---
Author Organization [facility] Address [address] [place] [address] Care Team Providers Care Hinging Machine Operator Name Role Phone Baljinder Garcia MD Primary Care Provider [phone] Encounters Date Type Department Care Team Description 04/23/2025 Telephone [facility] in [facility] [address] [facility] [address] [place] [address] Gianni Quintero MD from Last 3 Months Allergies Active Allergy [...] 30 minutes prior to exam. MUST HAVE TABLE COVER FOLDER 2 tablet 05/11/20 23 Active buPROPion XL [...] and potentially she may not be protected. Jose Guadalupelovinav advised if she develops recurrent COVID-19.. Hydrocodone/APAP [...] and potentially she may not be protected. Jose Guadalupelovinav advised if she develops recurrent COVID-19.. 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 Hep B core IgM Nonreactive Nonreactive [facility] Comment: Interpretive Data If HepB [...] last revised on 2019. HepBsAg Nonreactive Nonreactive [facility] Blood specimen (specimen) 08/07/2020 11:13 AM CDT 08/07/2020 11:48 AM CDT Gianni Quintero MD LAB MICROBIOLOGY - GENERAL OR DERABLES Final Result [facility] [address] Department [place] [address] from Last 3 Months or Most Recently Relevant to Health Maintenance Insurance [address] CHOICE PLUS [address] CHOICE PLUS [address] CHOICE PLUS [address] CHOICE PLUS Care Teams Hinging Machine Operator Relationship Specialty Start Date End Date Baljinder Garcia MD [address] [place] [address] PCP - General Family Medicine 04/14/23
[2025-04-23 12:10] LABS: Hematocrit 45.2 % (37.0-47.0); Hemoglobin 14.9 g/dL (12.0-15.0); Immature Granulocyte Percent A 0.1 % (0-0.5); Lymphocytes Absolute Auto 1.88 K/mm3 (0.9-3.2); Mean Corpuscular HGB Conc 33.0 g/dl (32-36); Mean Corpuscular Hemoglobin 32.0 pg (26-34); Mean Corpuscular Volume 97.0 fl (80-100); Nucleated Red Blood Cells Absolute Auto 0.000 K/mm3 (0.0-0.012); Nucleated Red Blood Cells Perc 0.0 % (0.0-0.2); Platelet Count Result 308 k/mm3 (150-375); Red Blood Count 4.66 M/mm3 (4.2-5.4); White Blood Count 7.6 K/mm3 (4.5-10.0)
[2025-04-23 12:35] LABS: Alanine Aminotransferase 16 U/L (6-35); Alkaline Phosphatase 75 U/L (38-126); Bilirubin,Total 0.5 mg/dL (0.2-1.3); Calcium 9.7 mg/dL (8.4-10.2); Carbon Dioxide 27 mmol/L (22-30); Sodium 141 mmol/L (137-145)
[2025-04-23 12:44] LABS: Immunoglobulin A 235 mg/dL (70-400); Immunoglobulin G 1446 mg/dL (700-1600); Immunoglobulin M 81 mg/dL (40-230)
[2025-04-23 13:13] LABS: Albumin Level 4.6 g/dL (3.5-5.1); Anion Gap 8 mmol/L (4-12); Aspartate Amino Transferase 24 U/L (14-36); Blood Urea Nitrogen 10 mg/dL (7-17); Chloride 106 mmol/L (98-107); Estimated Glomerular Filt Rate 60; Glucose 98 mg/dL (65-110); Potassium 4.3 mmol/L (3.4-5.0); Total Protein 8.4 g/dL (6.3-8.2)
== END 2025-04-23 10:29 | disposition home or self-care (01) ==
PROVIDERS: PCP Nurse Practitioner; Visit Provider Psychiatry & Neurology Neurology
DX: G35 Multiple sclerosis (principal); Z79.899 Other long term (current) drug therapy
CPT/HCPCS: 36415; 80053; 82784; 85025

== ENCOUNTER 2025-07-12 16:44 | Outpatient (CLI) | payer OTHER, SELFPAY ==
--- OUTSIDE RECORDS SUMMARY | 2007-09-27 09:46 | XMS_ITS | Continuity of Care Document ---
Author Organization [facility] Address [address] [place] [address] [address] [place] [address] Phone Care Team Providers Care Family Services Worker Name Role Phone Justice OD, Ze Unavailable Unavailable Procedures Procedure Date Office/outpatient Visit, [facility] Advance Directives Directive Yes / No Effective Date File Name No Information Encounters Encounter Description Practice Location Reason(s) For Visit Diagnoses Date Provider Providers Copied on Encounter Office/outpat ient Visit, [facility], [address] [place] [address] [address], [place], [place], [id number], [place] tel:[phone] [facility] [address] No Information [phone] Justice OD Ze. [address] , [address], [place], [address], [place]. tel:[phone] Family History Family Member Type Diagnosis Age At Onset No Information Payers Payer name Insurance type Covered constitution party ID Authoriza tion(s) Medicaid [place] [id number] Social History Type Description Quantity Date Captured Comments Sex Female Smoking Status No Information Chief Complaint And Reason For Visit No Information Reason For Referral Reason For Referral No Information History Of Present Illness Encounter Date Complaint History Of Prese nt Illness No Information Functional Status Date Functional Assessmen t No Information Instructions Date Instruction Additional Infor mation No Information Assessments Type Assessment Date No Information Patient Care Teams Name Effective Dates (start - stop) Status Members No Information
--- OUTSIDE RECORDS SUMMARY | 2025-07-12 16:47 | XMS_ITS | Clinical Summary ---
Author Organization [facility] Address [address] [place] [address] Care Team Providers Care Container Finisher Name Role Phone Dimitri Davis MD Primary Care Provider [phone] Allergies Active Allergy Reactions Criticality Noted Date [...] (5 mg total) by mouth daily Active cholecalciferol, vitamin D3, (VITAMIN D3 ORAL) Take by mouth Active progesterone (PROMETRIUM) 200 mg capsule 02/16/20 23 Active oxyBUTYnin XL (DITROPAN XL) 15 mg 24 hr tabletIndications: Neurogenic bladder Take 1 tablet (15 mg total) by mouth daily 30 tablet 5 03/09/20 23 Active Additional Information Patient taking differently:15 mg oralAs needed, Reported on 06/25/2025 buPROPion XL (WELLBUTRIN XL) 150 mg 24 hr tabletIndications: Multiple sclerosis,Depressi on due to multiple sclerosis TAKE 1 TABLET EVERY MORNING 90 tablet 3 06/06/20 24 Active montelukast (SINGULAIR) 10 mg tablet Take 1 tablet (10 mg total) by mouth daily 05/03/20 24 Active ondansetron ODT (ZOFRAN-ODT) 4 mg disintegrating tabletIndications: Multiple sclerosis Take 1 tablet (4 mg total) by mouth every 8 (eight) hours as needed for nausea or vomiting 20 tablet 11/20/19 25 Active estradioL (ESTRACE) 0.5 mg tablet Take 1 tablet (0.5 mg total) by mouth daily 09/25/20 24 Active baclofen (LIORESAL) 10 mg tabletIndications: Multiple sclerosis Take 1 tablet (10 mg total) by mouth every 8 (eight) hours as needed for muscle spasms 90 tablet 3 06/25/20 25 Active cyclobenzaprine (FLEXERIL) 10 mg tabletIndications: Multiple sclerosis Take 1 tablet (10 mg total) by mouth every 8 (eight) hours as needed for muscle spasms 90 tablet 3 06/25/20 25 Active HYDROcodone-acetam inophen (NORCO) 5-325 mg per tabletIndications: Pain Take 1 tablet by mouth every 6 (six) hours as needed (pain) 20 tablet 06/25/20 25 Active diazePAM (VALIUM) 5 mg tabletIndications: anxiety Take 1 tablet by mouth 1 hour prior to MRI, may repeat 30 minutes prior to exam. MUST HAVE WHEEL ALIGNMENT TECHNICIAN 2 tablet 07/08/20 25 Active triamcinolone (KENALOG) 0.1 % cream 11/04/19 22 025 Discontin ued(Thera py completed ) baclofen (LIORESAL) 10 mg tabletIndications: Multiple sclerosis Take 1 tablet (10 mg total) by mouth every 8 (eight) hours as needed for muscle spasms 60 tablet 3 03/09/20 23 025 Discontin ued(Reord er) diazePAM (VALIUM) 5 mg tabletIndications: anxiety Take 1 tablet by mouth 1 hour prior to MRI, may repeat 30 minutes prior to exam. MUST HAVE WHEEL ALIGNMENT TECHNICIAN 2 tablet 05/11/20 23 025 Discontin ued(Thera py completed ) HYDROcodone-acetam inophen (NORCO) 5-325 mg per tabletIndications: Pain Take 1 tablet by mouth every 6 (six) hours as needed (pain) 20 tablet 07/30/20 24 025 Discontin ued(Reord er) cyclobenzaprine (FLEXERIL) 10 mg tabletIndications: Multiple sclerosis TAKE 1 TABLET EVERY 8 HOURS NEEDED FOR MUSCLE SPASMS 60 tablet 5 12/07/19 25 025 Discontin ued(Reord er) Active Problems Problem Noted Date Diagnosed Date [...] Plan (07/05/2017 9:31 AM CDT): Fioricet prn Depression, controlled 07/05/2017 Assessment & Plan (06/17/2023 2:07 PM [...] Encounters Date Type Department Care Team Description 06/25/2025 9:15 AM CDT Office Visit [facility] for [facility] in [address] [address] Gianni Quintero MD Multiple sclerosis (HCC) (Primary Dx); Neurogenic bladder; Depression, controlled; Migraine without aura and without status migrainosus, not intractable; Hyperthyroidism 05/13/2025 8:30 AM CDT Infusion [facility] [address] [place] [address] [place] [address] Multiple sclerosis (HCC) (Primary Dx) 05/10/2025 Orders Only [facility] [address] [place] [address] [place] [address] Dorothea Lama PA 04/30/2025 Orders Only [facility] for [facility] in [address] [address] Gianni Quintero MD 04/29/2025 Orders Only [facility] [place] in Care [address] [facility] [address] [address] Gianni Quintero MD 04/29/2025 Telephone [facility] [place] in [facility] [address] [facility] [address], [place] [address] Wali Bustamante [facility] 05/13/2025 (Auth# [id number], 05/13/25-05/13/26) 04/24/2025 Orders Only [facility] [place] in [address], [place] [address] Gianni Quintero MD 04/23/2025 Telephone [facility] [place] in [address] [address] Gianni Quintero MD from Last 3 Months [...] on file Legal 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 Gender Identity Not on file Sexual Orientation Not on file Obstetrics History Last Filed Vital Signs Vital Sign Reading Time Taken Comments Blood Pressure 124/78 06/25/2025 9:09 AM CDT Pulse 109 06/25/2025 9:09 AM CDT Temperature 36.7 C (98 F) 05/13/2025 12:31 PM CDT Respiratory Rate 16 05/13/2025 12:31 PM CDT Oxygen Saturation 97% 06/25/2025 9:09 AM CDT Inhaled Oxygen Concentration - - Weight 84.9 kg (187 lb 3.2 oz) 06/25/2025 9:09 A M CDT Height 167.6 cm (5' 6) 06/25/2025 9:09 AM CDT Body Mass Index 30.21 06/25/2025 9:09 AM CDT Plan of Treatment Health Maintenance Due Date Last Done Comments Breast Cancer Screening-Mammogram 1973 Cervical Cancer Screening 1973 Colon Cancer Screening-Colonoscopy 1973 Depression Screening 1973 DTaP/Tdap/Td Vaccine (1 - Tdap) 1984 Hepatitis B Screening 1991 Regular Well Visit/Exam 18-64 1991 Pneumococcal vaccine <65 (1 of 2 - PCV) 1992 Covid-19 Vaccine (5 - 2024-2 6 season) 2025 07/12/2022, 07/16/2021, 12/28/2020, Additional history exists Influenza Vaccine (#1) 2025 , 07/12/2022, 08/24/2019, Additional history exists Hepatitis C Screening Completed 08/07/2020, 018 Zoster Vaccine Completed 01/03/2024, 09/13/2023 Procedures Procedure Name Priority Date/Time Associated Diagnosis Comments MISCELLANEOUS BLOOD RESULT Routine 04/30/2025 12:54 PM CDT MISCELLANEOUS BLOOD RESULT Routine 04/29/2025 2:54 PM CDT MISCELLANEOUS BLOOD RESULT Routine 04/24/2025 2:10 PM CDT HEPATITIS PANEL, ACUTE Routine 11:13 AM CDT Multiple sclerosis (HCC) from Last 3 Months or Most Recently Relevant to Health Maintenance Results * Miscellaneous blood result (04/30/2025 12:54 PM CDT) Blood us Gianni Quintero MD LAB BLOOD ORDERABLES Final Re sult * Miscellaneous blood result (04/29/2025 2:54 PM CDT) Blood us Gianni Quintero MD LAB BLOOD ORDERABLES Final Re sult * Miscellaneous blood result (04/24/2025 2:10 PM CDT) Blood us Gianni Quintero MD LAB BLOOD ORDERABLES Final Re sult * Hepatitis panel, acute (08/07/2020 11:13 AM CDT) Hep A IgM Nonreactive Nonreactive [facility] Comment: Interpretive Data: If Hep A IgM Ab is reported as Equivocal, a new sample should be drawn in two weeks for testing. Current interpretive data was last revised on 19. Hep B core IgM Nonreactive Nonreactive [facility] Comment: Interpretive Data If HepB Core IgM Ab is reported as Equivocal, a new sample should be drawn in two weeks for testing. Current interpretive data was last revised on 19. Hep C Ab Nonreactive Nonreactive [facility] Comment: Interpretive Data Nonreactive: Antibodies to HCV [...] last revised on 2019. HepBsAg Nonreactive Nonreactive [facility] Blood specimen (specimen) 08/07/2020 11:13 AM CDT 08/07/2020 11:48 AM CDT us Gianin Quintero MD LAB MICROBIOLOGY - GENERAL OR DERABLES Final Result [facility] [address] Department [place] [address] from Last 3 Months or Most Recently Relevant to Health Maintenance Insurance [address] CHOICE PLUS [address] CHOICE PLUS [address] CHOICE PLUS [place] [id number] [facility] CHOICE PLUS Care Teams Container Finisher Relationship Specialty Start Date End Date Dimitri Davis MD [address] [place] [address] PCP - General Family Medicine 05/13/25
--- OUTSIDE RECORDS SUMMARY | 2025-07-12 16:47 | XMS_ITS | Encounter Summary ---
Author Organization [facility] Healthcare Address [address] [place] [address] Care Team Providers Care Computer Systems Designer Name Role Phone Baljinder Garcia MD Primary Care Provider [phone] Dimitri Davis MD Primary Care Provider [phone] Encounter Details Date Type Department Care Team (Late st Contact Info) Description 04/04/2024 Telephone [facility] Center [address] [address] Kim Cagle RN Social History Tobacco Use Types Packs/Day Years Used Date Smoking Tobacco: Light Smoker Smokeless Tobacco: Never Alcohol Use Standard Drinks/Week Comments No 0 (1 standard drink = 0.6 oz pur e alcohol) Comments No Sex and Gender Information Value Date Recorded Sex Assigned at Not on file 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
--- OUTSIDE RECORDS SUMMARY | 2025-07-12 16:47 | XMS_ITS | Encounter Summary ---
Author Organization [facility] Address [address] [facility] [address] [place] [address] Phone Care Team Providers Care Rn Physician Office Name Role Phone Cosmo Wright MD Primary Care Provider [phone] Baljinder Garcia MD Primary Care Provider [phone] Dimitri Davis MD Primary Care Provider [phone] Encounter Details Date Type Department Care Team (Late st Contact Info) Description 01/06/2018 Orders Only [facility] ProviderTiesha MD [facility] [place] [address] Social History Tobacco Use Types Packs/Day Years Used Date Smoking Tobacco: Every Day Smokeless Tobacco: Never Alcohol Use Standard Drinks/Week Comments No 0 (1 standard drink = 0.6 oz pur e alcohol) Comments No Sex and Gender Information Value Date Recorded Sex Assigned at Not on file Legal Sex Female 4:35 PM 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
--- OUTSIDE RECORDS SUMMARY | 2025-07-12 16:47 | XMS_ITS | Patient Health Record ---
Author Organization [facility] [employer] Address [address] [facility] [address] [facility] [address] [place] [address] Care Team Providers Care Senior Android Software Engineer Name Role Phone Gerardo Herzog Unavailable [phone] Reason For Referral No Information Plan Of Treatment No Information
--- OUTSIDE RECORDS SUMMARY | 2025-07-12 16:47 | XMS_ITS | Encounter Summary ---
Author Organization [facility] Healthcare Address [address] [place] [address] Care Team Providers Care Pinmaker Name Role Phone Cosmo Wright MD Primary Care Provider [phone] Baljinder Garcia MD Primary Care Provider [phone] Dimitri Davis MD Primary Care Provider [phone] Encounter Details Date Type Department Care Team (Late st Contact Info) Description 08/06/2020 Telephone - Imaging [address] [place] [address] Transcribed Order, Provider Social History Tobacco Use Types Packs/Day Years Used Date Smoking Tobacco: Every Day Smokeless Tobacco: Never Alcohol Use Standard Drinks/Week Comments No 0 (1 standard drink = 0.6 oz pur e alcohol) Comments No Sex and Gender Information Value Date Recorded Sex Assigned at Not on file Legal Sex Female 4:35 PM [employer] Gender Identity Not on file Sexual Orientation Not on file documented as of this encounter Plan of Treatment Not on file documented as of this encounter Visit Diagnoses Not on filedocumented in this encounter Care Teams Pinmaker Relationship Specialty Start Date End Date Cosmo Wright MD PCP - General 12/22/16 08/06/20 Baljinder Garcia MD [address] [place] [address] PCP - General Family Medicine 04/14/23 05/12/25 Dimitri Davis MD [address] [place] [address] PCP - General Family Medicine 05/13/25 documented as of this encounter
[2025-07-14 06:07] LABS: FSH 51.3 mIU/mL (.)
== END 2025-07-12 16:45 | disposition home or self-care (01) ==
PROVIDERS: PCP Nurse Practitioner; Visit Provider Obstetrics & Gynecology
DX: N95.1 Menopausal and female climacteric states (principal)
CPT/HCPCS: 83001